=== PATIENT | female | born 1950 | race Caucasian/White ===

== ENCOUNTER → 2016-05-19 | Outpatient (CLI) | payer OTHER ==
--- NOTE | 2016-05-19 16:55 | DI ---
LUMBAR SPINE SERIES, 05/19/2016 4:04 PM: Clinical History: Acute left-sided low back pain without sciatica. Previous Exam: None at this facility. 3 routine upright views are submitted. The vertebral bodies are of normal height and size. There is m oderate to moderately severe disc space narrowing at every lumbar level. Posterior alignment is sintia l. Degenerative arthritic changes are present bilaterally in the apophyseal joints between L3-4 and L 5-S1. The pedicles are normal. Both SI joints are normal. Reading: There is disc space narrowing at every lumbar level with degenerative arthritic changes in the apophy seal joints bilaterally between L3-4 and L5-S1.
== END ==
LOC: RAD 16:35
PROVIDERS: ATTEND Orthopaedic Surgery
DX: M54.5 Low back pain (principal); M48.06 Spinal stenosis, lumbar region; M47.816 Spondylosis without myelopathy or radiculopathy, lumbar region
CPT/HCPCS: 72100; 99203